=== PATIENT | male | born 1995 | race Caucasian/White ===

== ENCOUNTER → 2022-12-20 | Outpatient (CLI) | payer BC | END | disposition home or self-care (01) | LOC: LAB 14:49 | PROVIDERS: ATTEND Orthopaedic Surgery Adult Reconstructive Orthopaedic Surgery | DX: M70.22 Olecranon bursitis, left elbow (principal) | CPT/HCPCS: 87075; 87205; 89051; 89060 ==

== ENCOUNTER 2023-04-03 18:07 | Emergency (ER) | payer BC ==
[~2023-04-03] VITALS: Ht 188 cm; Wt 102.2 kg
[2023-04-03] MEDS ORDERED: HYDROcodone-ACET 5/325MG TAB PO ONE (20:15)
[2023-04-03 20:26] LABS: Basophils # (auto) 0 10 ^3/uL (0-0.2); Basophils % (auto) 0.2 % (0.0-2.0); Eosinophils # (auto) 0.1 10 ^3/uL (0-0.8); Eosinophils % (auto) 0.6 % (0.0-7.0); Hematocrit 45.1 % (41.0-53.0); Hemoglobin 15.5 g/dL (13.5-17.5); Lymphocytes # (auto) 2.4 10 ^3/uL (0.4-5.4); Lymphocytes % (auto) 23.2 % (10.0-50.0); Mean Corpuscular Hemoglobin 29.2 pg (28.0-32.0); Mean Corpuscular Hgb Conc. 34.3 g/dL (32.0-36.0); Mean Corpuscular Volume 85.1 fL (80.0-100.0); Monocytes # (auto) 0.8 10 ^3/uL (0-1.3); Nucleated Red Blood Cells % 0.2 %; Red Cell Distribution Width 13.3 % (11.8-14.3); White Blood Cell 10.3 10^3/uL (4.4-10.8)
[2023-04-03 20:38] LABS: Albumin 4.2 g/dL (3.4-5.0); Calcium 8.4 mg/dL (8.5-10.1); Potassium 3.8 mmol/L (3.5-5.1)
[2023-04-03 20:41] LABS: BUN/Creatinine Ratio 15.5 (10.0-20.0); Bilirubin, Total 0.6 mg/dL (0.2-1.0); Total Protein 7.5 g/dL (6.4-8.2)
[2023-04-04] MEDS ORDERED: CEPHALEXIN 250 MG CAP PO ONE
[2023-04-04] MEDS ORDERED: MORPHINE SULFATE 4 MG/ML SYR/VIAL IM ONE
[2023-04-04 01:26] VITALS: BP 123/78; PULSE 80; RESP 18; TEMP 98.1; O2SAT 96
== END 2023-04-04 01:14 | disposition short-term general hospital (02) ==
LOC: ER 18:07
DX: T79.A22A Traumatic compartment syndrome of left lower extremity, initial encounter (principal); S80.812A Abrasion, left lower leg, initial encounter; X58.XXXA Exposure to other specified factors, initial encounter; Y93.02 Activity, running; Y92.89 Other specified places as the place of occurrence of the external cause; Y99.8 Other external cause status
CPT/HCPCS: 36415; 73502; 73590; 80053; 82550; 82553; 85025; 93971; 96372; 99285; J2270

== ENCOUNTER 2023-05-10 08:43 | Day surgery (SDC) | payer BC ==
[2023-05-05 14:44] LABS: Urine WBC None Seen /hpf (0 - 3)
[2023-05-05 14:55] LABS: Basophils # (auto) 0 10 ^3/uL (0-0.2); Basophils % (auto) 0.4 % (0.0-2.0); Eosinophils # (auto) 0.1 10 ^3/uL (0-0.8); Eosinophils % (auto) 1.9 % (0.0-7.0); Hematocrit 44.1 % (41.0-53.0); Lymphocytes # (auto) 2.1 10 ^3/uL (0.4-5.4); Lymphocytes % (auto) 32.4 % (10.0-50.0); Mean Corpuscular Hgb Conc. 34.1 g/dL (32.0-36.0); Monocytes # (auto) 0.7 10 ^3/uL (0-1.3); Monocytes % (auto) 10.7 % (0.0-12.0); Neutrophils # (auto) 3.6 10 ^3/uL (1.6-8.6); Neutrophils % (auto) 54.6 % (37.0-80.0); Nucleated Red Blood Cells % 0.1 %; Red Blood Cells 5.18 10^6/uL (4.5-5.90); Red Cell Distribution Width 13.1 % (11.8-14.3); Urine Bacteria FEW /hpf (None Seen); Urine Blood Negative /uL (Negative); Urine Clarity Clear (Clear); Urine Color Yellow (Yellow); Urine Protein, UAD Negative (Negative); Urine Specific Gravity 1.026 (1.001-1.035); White Blood Cell 6.6 10^3/uL (4.4-10.8)
[2023-05-05 15:11] LABS: INR 1.09 (0.9-1.15); Partial Thromboplastin Time 28.7 SEC (24.5-34.5); Prothrombin Time 11.4 sec (9.3-11.8)
[2023-05-05 15:37] LABS: Alanine Aminotransferase 20 U/L (7-40); Alkaline Phosphatase 67 U/L (46-116); Anion Gap 4 (5-15); Aspartate Aminotransferase 9 U/L (13-40); BUN/Creatinine Ratio 12.9 (10.0-20.0); Blood Urea Nitrogen 12 mg/dL (9-23); Calcium 9.5 mg/dL (8.7-10.4); Carbon Dioxide 28 mmol/L (20-30); Chloride 107 mmol/L (98-107); Glucose 101 mg/dL (74-106); Potassium 4.5 mmol/L (3.5-5.1); Sodium 139 mmol/L (136-145)
[2023-05-05 15:38] LABS: Albumin 4.8 g/dL (3.2-4.8); Bilirubin, Total 1.1 mg/dL (0.2-1.0); Total Protein 7.3 g/dL (5.7-8.2)
[~2023-05-10] VITALS: Ht 188 cm; Wt 102.1 kg
[~2023-05-10 08:43] MED LIST: OMEP20TA PO
[2023-05-10] MEDS ORDERED: GABAPENTIN 300 MG CAP PO ONE (10:00)
[2023-05-10] MEDS ORDERED: CELECOXIB 100 MG CAP PO ONE (10:00)
[2023-05-10] MEDS ORDERED: ACETAMINOPHEN IV 1000 MG/100ML (10MG/ML) IV ONE (10:00)
[2023-05-10] MEDS ORDERED: ceFAZolin 1GM/50ML 100 ML IV ONE (10:23)
[2023-05-10] MEDS ORDERED: BUPIVACAINE 0.25% INJ 50ML VIAL ONE (10:50)
[2023-05-10] MEDS ORDERED: HYDR-4072 PO (10:50)
[2023-05-10] MEDS ORDERED: LIDOCAINE 1% (LOCAL ANESTH.) PF 5ml SDV ONE (11:09)
[2023-05-10] MEDS ORDERED: GLYCOPYRROLATE 0.2 MG/ML 1ML VIAL ONE (11:09)
[2023-05-10] MEDS ORDERED: PROPOFOL 10 MG/ML 20 ML IV ONE (11:09)
[2023-05-10] MEDS ORDERED: LIDOCAINE 2% (LOCAL ANESTH.) PF 5ml SDV ONE (11:09)
[2023-05-10] MEDS ORDERED: DexAMETHasone SOD PHOS 10MG/1ML VIAL INJ ONE (11:09)
[2023-05-10] MEDS ORDERED: KETOROLAC TROMETH 30 MG/ML 1ML VIAL ONE (11:09)
[2023-05-10] MEDS ORDERED: ROCURONIUM 10MG/ML 10ML VIAL IV ONE (11:09)
[2023-05-10] MEDS ORDERED: ONDANSETRON HCL 4 MG/2 ML VIAL ONE (11:09)
[2023-05-10] MEDS ORDERED: fentaNYL CITRATE 100 MCG/2 ML VL ONE (11:10)
[2023-05-10] MEDS ORDERED: SUGAMMADEX 200mg/2ml Vial (100MG/ML) IV ONE (11:10)
[2023-05-10 12:58] VITALS: TEMP 97.1; O2SAT 97
[2023-05-10] MEDS ORDERED: ePHEDrine SULFATE 50 MG/ML AMP IV PRN (13:15)
[2023-05-10] MEDS ORDERED: LABETALOL HCL 5 MG/ML 4ML SYRINGE IV PRN (13:15)
[2023-05-10] MEDS ORDERED: HYDROmorphone HCL 2 MG/ML VL/or syr IV PRN (13:15)
[2023-05-10] MEDS ORDERED: NALOXONE HCL 0.4 MG/ML VIAL IV PRN (13:15)
[2023-05-10] MEDS ORDERED: FLUMAZENIL 0.1 MG/ML INJ 10ML MDV IV PRN (13:15)
[2023-05-10] MEDS ORDERED: ONDANSETRON HCL 4 MG/2 ML VIAL IV PRN (13:15)
[2023-05-10] MEDS ORDERED: oxyCODONE HCL 5MG TAB PO PRN (13:15)
[2023-05-10] MEDS ORDERED: fentaNYL CITRATE 100 MCG/2 ML VL IV PRN (13:15)
[2023-05-10] MEDS ORDERED: hydrALAZINE HCL 20 MG/ML VL IV PRN (13:15)
[2023-05-10 13:58] VITALS: BP 132/88; PULSE 59; RESP 13; O2SAT 95
== END 2023-05-10 14:05 | disposition home or self-care (01) ==
LOC: SUR 08:43
PROVIDERS: ATTEND Orthopaedic Surgery Sports Medicine
DX: S43.491A Other sprain of right shoulder joint, initial encounter (principal); M25.511 Pain in right shoulder; G89.29 Other chronic pain; X58.XXXA Exposure to other specified factors, initial encounter; Y93.89 Activity, other specified; Y92.89 Other specified places as the place of occurrence of the external cause; Y99.8 Other external cause status; M25.311 Other instability, right shoulder
CPT/HCPCS: 29806; 36415; 80053; 81001; 85025; 85610; 85730; C1713; J0131; J0690; J1100; J1885; J2001; J2405; J2704; J3490

== ENCOUNTER → 2023-09-16 | Outpatient (CLI) | payer BC ==
[~2023-09-16] MED LIST changes: +HYDR-4072 PO
[2023-09-16 15:52] LABS: Urine WBC None Seen /hpf (0 - 3)
[2023-09-16 15:57] LABS: Basophils # (auto) 0 10 ^3/uL (0-0.2); Basophils % (auto) 0.3 % (0.0-2.0); Eosinophils # (auto) 0.1 10 ^3/uL (0-0.8); Eosinophils % (auto) 0.9 % (0.0-7.0); Hematocrit 48.3 % (41.0-53.0); Hemoglobin 16.4 g/dL (13.5-17.5); Lymphocytes # (auto) 2.4 10 ^3/uL (0.4-5.4); Lymphocytes % (auto) 35.3 % (10.0-50.0); Mean Corpuscular Hemoglobin 29.2 pg (28.0-32.0); Mean Corpuscular Hgb Conc. 33.9 g/dL (32.0-36.0); Mean Corpuscular Volume 86.2 fL (80.0-100.0); Monocytes # (auto) 0.6 10 ^3/uL (0-1.3); Monocytes % (auto) 8.3 % (0.0-12.0); Neutrophils # (auto) 3.7 10 ^3/uL (1.6-8.6); Neutrophils % (auto) 55.2 % (37.0-80.0); Nucleated Red Blood Cells % 0.1 %; Red Cell Distribution Width 13.1 % (11.8-14.3); White Blood Cell 6.7 10^3/uL (4.4-10.8)
[2023-09-16 15:58] LABS: Urine Bacteria NONE SEEN /hpf (None Seen); Urine Blood Negative /uL (Negative); Urine Clarity Clear (Clear); Urine Color Colorless (Yellow); Urine Protein, UAD Negative (Negative); Urine Specific Gravity 1.023 (1.001-1.035); Urine Urobilinogen Normal (Negative)
[2023-09-16 16:34] LABS: Alanine Aminotransferase 31 U/L (7-40); Alkaline Phosphatase 65 U/L (46-116); Anion Gap 8 (5-15); Aspartate Aminotransferase 24 U/L (13-40); BUN/Creatinine Ratio 12.8 (10.0-20.0); Blood Urea Nitrogen 11 mg/dL (9-23); Calcium 9.9 mg/dL (8.5-10.1); Carbon Dioxide 25 mmol/L (20-30); Chloride 105 mmol/L (98-107); Glucose 86 mg/dL (74-106); LDL Cholesterol 143 mg/dL (< 100); Potassium 3.9 mmol/L (3.5-5.1); Sodium 138 mmol/L (136-145); Triglycerides 135 mg/dL (< 150)
[2023-09-16 16:35] LABS: Albumin 5.1 g/dL (3.2-4.8); Bilirubin, Total 1.2 mg/dL (0.2-1.0); Cholesterol 204 mg/dL (< 200); HDL Cholesterol 43 mg/dL (40-59); Total Protein 7.7 g/dL (5.7-8.2)
[2023-09-16 16:38] LABS: Folate (Folic Acid) > 24.00 ng/mL (>5.38)
[2023-09-16 17:10] LABS: Magnesium 2.1 mg/dL (1.6-2.6)
== END | disposition home or self-care (01) ==
LOC: LAB 15:29
PROVIDERS: ATTEND Internal Medicine
DX: E61.2 Magnesium deficiency (principal); E79.0 Hyperuricemia without signs of inflammatory arthritis and tophaceous disease; R94.6 Abnormal results of thyroid function studies; E55.9 Vitamin D deficiency, unspecified; R82.998 Other abnormal findings in urine; D51.9 Vitamin B12 deficiency anemia, unspecified; R82.79 Other abnormal findings on microbiological examination of urine; R78.89 Finding of other specified substances, not normally found in blood; R68.89 Other general symptoms and signs; E78.49 Other hyperlipidemia; R73.09 Other abnormal glucose
CPT/HCPCS: 36415; 80053; 80061; 81001; 82306; 82607; 82746; 83036; 83735; 84403; 84443; 84550; 85025; 87086

== ENCOUNTER → 2024-12-11 | Outpatient (CLI) | payer BC ==
[2024-12-11 10:37] LABS: Basophils # (auto) 0 10 ^3/uL (0-0.2); Basophils % (auto) 0.4 % (0.0-2.0); Eosinophils # (auto) 0.1 10 ^3/uL (0-0.8); Eosinophils % (auto) 1.3 % (0.0-7.0); Hematocrit 46.6 % (41.0-53.0); Hemoglobin 16.2 g/dL (13.5-17.5); Lymphocytes # (auto) 1.8 10 ^3/uL (0.4-5.4); Lymphocytes % (auto) 32.8 % (10.0-50.0); Mean Corpuscular Hemoglobin 29.5 pg (28.0-32.0); Mean Corpuscular Hgb Conc. 34.9 g/dL (32.0-36.0); Mean Corpuscular Volume 84.5 fL (80.0-100.0); Monocytes # (auto) 0.5 10 ^3/uL (0-1.3); Monocytes % (auto) 9.4 % (0.0-12.0); Neutrophils # (auto) 3.1 10 ^3/uL (1.6-8.6); Neutrophils % (auto) 56.1 % (37.0-80.0); Nucleated Red Blood Cells % 0.3 %; Platelet Count (auto) 234 10^3/uL (140-450); Red Blood Cells 5.51 10^6/uL (4.5-5.90); White Blood Cell 5.6 10^3/uL (4.4-10.8)
[2024-12-11 10:55] LABS: Alanine Aminotransferase 29 U/L (7-40); Albumin 4.8 g/dL (3.2-4.8); Alkaline Phosphatase 59 U/L (46-116); Anion Gap 6 (5-15); Aspartate Aminotransferase 16 U/L (13-40); BUN/Creatinine Ratio 15.3 (10.0-20.0); Blood Urea Nitrogen 13 mg/dL (9-23); Calcium 9.8 mg/dL (8.7-10.4); Carbon Dioxide 26 mmol/L (20-31); Chloride 107 mmol/L (98-107); Glucose 102 mg/dL (74-106); Potassium 4.3 mmol/L (3.5-5.1); Sodium 139 mmol/L (136-145); Total Protein 7.2 g/dL (5.7-8.2); Triglycerides 141 mg/dL (< 150)
[2024-12-11 10:56] LABS: Bilirubin, Total 1.4 mg/dL (0.2-1.0); Cholesterol 205 mg/dL (< 200); HDL Cholesterol 37 mg/dL (40-59); LDL Cholesterol 142 mg/dL (< 100)
== END | disposition home or self-care (01) ==
LOC: LAB 10:07
PROVIDERS: ATTEND Nurse Practitioner Family
DX: I10 Essential (primary) hypertension (principal); R35.1 Nocturia; R20.0 Anesthesia of skin; R68.82 Decreased libido; R53.83 Other fatigue; Z00.01 Encounter for general adult medical examination with abnormal findings
CPT/HCPCS: 36415; 80053; 80061; 84153; 84403; 84443; 85025